=== PATIENT | female | born 1990 | race Caucasian/White ===

== ENCOUNTER 2019-01-28 08:11 | Emergency (ER) | payer BC, OTHER ==
[2019-01-28] MEDS: ONDANSETRON (ODT) 4 MG TAB ODT (09:03)
== END 2019-01-28 09:22 | disposition home or self-care (01) ==
LOC: FTE 08:11
DX: D17.5 Benign lipomatous neoplasm of intra-abdominal organs (principal)
CPT/HCPCS: 81025; 99283